=== PATIENT | female | born 1990 | race Caucasian/White ===

== ENCOUNTER → 2021-04-06 | Outpatient (CLI) | payer OTHER | LOC: NM 03-30 15:00 → HEART 5 04-24 11:00 | DX: R07.9 Chest pain, unspecified (principal); R06.02 Shortness of breath | CPT/HCPCS: 93017 ==

== ENCOUNTER → 2021-05-28 | Outpatient (CLI) | payer OTHER ==
[2021-05-28 15:22] LABS: BUN/CREATININE RATIO 12 (0-10)
== END ==
LOC: LAB 14:30
PROVIDERS: Internal Medicine Cardiovascular Disease
DX: R00.2 Palpitations (principal); I49.1 Atrial premature depolarization; R06.02 Shortness of breath
CPT/HCPCS: 80048; 80061; 80074; 83735